=== PATIENT | female | born 1945 | race Caucasian/White ===

== ENCOUNTER 2016-12-15 21:51 | Emergency (ER) | payer MEDICARE, OTHER ==
[~2016-12-15] VITALS: Ht 165.1 cm; Wt 75.0 kg
[2016-12-15] MEDS ORDERED: htn PO (22:27)
[2016-12-15] MEDS ORDERED: [UNRECOGNIZED DRUG - OTHER] PO (22:27)
[2016-12-15] MEDS ORDERED: thyroid PO (22:27)
[2016-12-16] VITALS: BP 112/62
[2016-12-16 00:43] LABS: GLUCOSE,POINT OF CARE 125 MG/DL (70-110)
== END 2016-12-16 00:03 | disposition home or self-care (01) ==
LOC: EMS 21:52
DX: S00.83XA Contusion of other part of head, initial encounter (principal); E11.9 Type 2 diabetes mellitus without complications; F10.129 Alcohol abuse with intoxication, unspecified; I10 Essential (primary) hypertension; E03.9 Hypothyroidism, unspecified; W01.198A Fall on same level from slipping, tripping and stumbling with subsequent striking against other object, initial encounter; Y93.89 Activity, other specified; Y92.89 Other specified places as the place of occurrence of the external cause; Y99.8 Other external cause status
CPT/HCPCS: 70450; 82962; 99284

== ENCOUNTER 2019-01-01 14:25 | Inpatient (IN) | payer MEDICARE, OTHER ==
[~2019-01-01] VITALS: Ht 157.5 cm; Wt 76.7 kg
[~2019-01-01 14:25] MED LIST: [UNRECOGNIZED DRUG - OTHER] PO; htn PO; thyroid PO
[2019-01-01 16:16] VITALS: BP 139/58
[2019-01-01] MEDS ORDERED: TRIAMCINOLONE 0.1% 15 GM CREAM TP PRN (16:30)
[2019-01-01] MEDS ORDERED: MELATONIN 3 MG TABLET PO PRN (16:30)
[2019-01-01] MEDS ORDERED: DICYCLOMINE HCL 10 MG CAPSULE PO SCH (16:30)
[2019-01-01 16:50] VITALS: BP 139/58
[2019-01-01] MEDS: ACETAMINOPHEN 325 MG TABLET PO PRN (16:54)
[2019-01-01] MEDS: MetFORMIN HCL 850 MG TABLET PO SCH (17:42)
[2019-01-01] MEDS ORDERED: DEXTROSE 50%-WATER 25 GM/50 ML SYRINGE IVP PRN (17:45)
[2019-01-01 18:11] LABS: GLUCOMETER DEV NAME(LOC) 2WR.2; GLUCOSE,POINT OF CARE 104 MG/DL (70-110)
[2019-01-01] MEDS: OMEPRAZOLE 20 MG CAPSULE PO SCH (20:18)
[2019-01-01] MEDS: DICYCLOMINE HCL 10 MG CAPSULE PO SCH (20:18)
[2019-01-01] MEDS: DOCUSATE SODIUM 100 MG CAPSULE PO SCH (20:19)
[2019-01-01] MEDS: SENNA 187 MG TABLET PO SCH (20:19)
[2019-01-01] MEDS ORDERED: SOLIFENACIN SUCCINATE 5 MG TABLET PO SCH (21:00)
[2019-01-01 21:06] VITALS: BP 138/62
[2019-01-01 22:10] LABS: GLUCOMETER DEV NAME(LOC) 2WR.2; GLUCOSE,POINT OF CARE 122 MG/DL (70-110)
[2019-01-02] VITALS: BP 126/60
[2019-01-02] MEDS ORDERED: PRED10 PO (04:13)
[2019-01-02] MEDS ORDERED: XALA2.5OS OU (04:13)
[2019-01-02 06:05] LABS: GLUCOMETER DEV NAME(LOC) 2WR.1B; GLUCOSE,POINT OF CARE 96 MG/DL (70-110)
[2019-01-02 06:52] LABS: BASOPHILS % (AUTO) 2.1 % (0.0-2.0); EOSINOPHILS % (AUTO) 1.9 % (1.0-6.0); HEMATOCRIT 37.1 % (36-46); HEMOGLOBIN 12.4 g/dL (12.0-16.0); LYMPHOCYTES # (AUTO) 3.2 K/uL (1.0-4.8); LYMPHOCYTES % (AUTO) 44.4 % (22.0-44.0); MEAN CORPUSCULAR HEMOGLOBIN 27.6 pg (26.0-34.0); MEAN CORPUSCULAR HGB CONC 33.3 G/dL (31.0-37.0); MEAN CORPUSCULAR VOLUME 83 fL (80-100); MONOCYTES # (AUTO) 0.6 K/uL (0.1-1.0); MONOCYTES % (AUTO) 8.4 % (2.0-9.0); NEUTROPHILS # (AUTO) 3.1 K/uL (1.8-7.7); NEUTROPHILS % (AUTO) 43.2 % (40.0-70.0); PLATELET COUNT (AUTO) 382 K/uL (150-450); RED BLOOD CELL COUNT(AUTO) 4.48 MIL/uL (4.00-5.20); RED CELL DISTRIBUTION WIDTH 16.2 % (11.5-14.5)
[2019-01-02] MEDS ORDERED: LEVOTHYROXINE SODIUM 88 MCG TABLET PO SCH (07:00)
[2019-01-02 07:07] LABS: ALBUMIN 3.4 g/dL (3.4-5.0); BILIRUBIN,TOTAL 0.4 mg/dL (0.1-1.0); CALCIUM, TOTAL 9.8 mg/dL (8.8-10.5); CREATININE 1.34 mg/dL (0.60-1.30); POTASSIUM 3.8 mmol/L (3.5-5.1); TOTAL PROTEIN, SERUM 7.5 g/dL (6.4-8.2)
[2019-01-02] MEDS: MetFORMIN HCL 850 MG TABLET PO SCH ×2 (07:57→17:01)
[2019-01-02 08:00] VITALS: BP 133/67
[2019-01-02] MEDS: DOCUSATE SODIUM 100 MG CAPSULE PO SCH ×3 (08:08→20:56)
[2019-01-02] MEDS: OMEPRAZOLE 20 MG CAPSULE PO SCH ×2 (08:09→20:48)
[2019-01-02] MEDS: HydrOXYzine HCL 10 MG TABLET PO SCH (08:09)
[2019-01-02] MEDS: DICYCLOMINE HCL 10 MG CAPSULE PO SCH ×4 (08:09→20:49)
[2019-01-02] MEDS: LOSARTAN POTASSIUM 25 MG TABLET PO SCH (08:09)
[2019-01-02] MEDS: PARoxetine HCL 20 MG TABLET PO SCH (08:09)
[2019-01-02] MEDS: FUROSEMIDE 20 MG TABLET PO SCH (08:09)
[2019-01-02] MEDS: LinaGLIPtin 5 MG TABLET PO SCH (08:10)
[2019-01-02] MEDS: ENOXAPARIN SODIUM 40 MG/0.4 ML PF SYRINGE SQ SCH (08:10)
[2019-01-02] MEDS: ACETAMINOPHEN 325 MG TABLET PO PRN (12:36)
[2019-01-02 12:50] LABS: GLUCOMETER DEV NAME(LOC) 2WR.2; GLUCOSE,POINT OF CARE 176 MG/DL (70-110)
[2019-01-02] MEDS ORDERED: MAG HYDROX/AL HYDROX/SIMETH 30 ML SUSP UDCUP PO PRN (14:00)
[2019-01-02] MEDS ORDERED: TraMADol HCL 50 MG TABLET PO PRN (14:00)
[2019-01-02] MEDS ORDERED: HYDROCODONE/ACETAMINOPHEN 5-325 MG TABLET PO PRN (14:00)
[2019-01-02 15:30] VITALS: BP 126/88
[2019-01-02 17:42] LABS: GLUCOMETER DEV NAME(LOC) 2WR.2; GLUCOSE,POINT OF CARE 138 MG/DL (70-110)
[2019-01-02] MEDS: SENNA 187 MG TABLET PO SCH (20:56)
[2019-01-02 21:56] LABS: GLUCOMETER DEV NAME(LOC) 2WR.2; GLUCOSE,POINT OF CARE 134 MG/DL (70-110)
[2019-01-03 03:00] VITALS: BP 141/65
[2019-01-03] MEDS: LEVOTHYROXINE SODIUM 100 MCG TABLET PO SCH (06:00)
[2019-01-03 06:02] LABS: GLUCOMETER DEV NAME(LOC) 2WR.1B; GLUCOSE,POINT OF CARE 142 MG/DL (70-110)
[2019-01-03 08:00] VITALS: BP 108/61
[2019-01-03] MEDS: PARoxetine HCL 20 MG TABLET PO SCH (08:16)
[2019-01-03] MEDS: DICYCLOMINE HCL 10 MG CAPSULE PO SCH ×4 (08:16→21:36)
[2019-01-03] MEDS: HydrOXYzine HCL 10 MG TABLET PO SCH (08:16)
[2019-01-03] MEDS: FUROSEMIDE 20 MG TABLET PO SCH (08:16)
[2019-01-03] MEDS: MetFORMIN HCL 850 MG TABLET PO SCH ×2 (08:16→17:17)
[2019-01-03] MEDS: OMEPRAZOLE 20 MG CAPSULE PO SCH ×2 (08:16→21:35)
[2019-01-03] MEDS: DOCUSATE SODIUM 100 MG CAPSULE PO SCH ×3 (08:16→21:00)
[2019-01-03] MEDS: LinaGLIPtin 5 MG TABLET PO SCH (08:16)
[2019-01-03] MEDS: LOSARTAN POTASSIUM 25 MG TABLET PO SCH (08:17)
[2019-01-03] MEDS: ENOXAPARIN SODIUM 40 MG/0.4 ML PF SYRINGE SQ SCH (08:17)
[2019-01-03] MEDS: INSULIN LISPRO 100 UNITS/ML SQ PRN ×2 (12:18→21:37)
[2019-01-03 15:35] VITALS: BP 150/69
[2019-01-03 16:55] LABS: GLUCOMETER DEV NAME(LOC) 2WR.1B; GLUCOSE,POINT OF CARE 166 MG/DL (70-110)
[2019-01-03 18:31] LABS: GLUCOMETER DEV NAME(LOC) 2WR.2; GLUCOSE,POINT OF CARE 131 MG/DL (70-110)
[2019-01-03 20:35] LABS: GLUCOMETER DEV NAME(LOC) 2WR.1B; GLUCOSE,POINT OF CARE 170 MG/DL (70-110)
[2019-01-03] MEDS: SENNA 187 MG TABLET PO SCH (21:00)
[2019-01-03 21:59] VITALS: BP 98/51
[2019-01-04] VITALS: BP 112/73
[2019-01-04] MEDS: LEVOTHYROXINE SODIUM 100 MCG TABLET PO SCH (05:25)
[2019-01-04 05:56] LABS: GLUCOMETER DEV NAME(LOC) 2WR.1B; GLUCOSE,POINT OF CARE 126 MG/DL (70-110)
[2019-01-04] MEDS: OMEPRAZOLE 20 MG CAPSULE PO SCH ×2 (08:21→21:07)
[2019-01-04] MEDS: ENOXAPARIN SODIUM 40 MG/0.4 ML PF SYRINGE SQ SCH (08:21)
[2019-01-04] MEDS: LinaGLIPtin 5 MG TABLET PO SCH (08:21)
[2019-01-04] MEDS: HydrOXYzine HCL 10 MG TABLET PO SCH (08:22)
[2019-01-04] MEDS: FUROSEMIDE 20 MG TABLET PO SCH (08:22)
[2019-01-04] MEDS: DICYCLOMINE HCL 10 MG CAPSULE PO SCH ×4 (08:22→21:05)
[2019-01-04] MEDS: MetFORMIN HCL 850 MG TABLET PO SCH ×2 (08:22→17:04)
[2019-01-04] MEDS: PARoxetine HCL 20 MG TABLET PO SCH (08:23)
[2019-01-04] MEDS: LOSARTAN POTASSIUM 25 MG TABLET PO SCH (08:23)
[2019-01-04] MEDS: DOCUSATE SODIUM 100 MG CAPSULE PO SCH ×2 (08:23→21:00)
[2019-01-04 08:53] VITALS: BP 150/69
[2019-01-04] MEDS: MULTIVITAMINS, THERAPEUTIC 15 ML UDCUP PO SCH ×2 (11:45→12:42)
[2019-01-04] MEDS: INSULIN LISPRO 100 UNITS/ML SQ PRN (12:44)
[2019-01-04 16:01] VITALS: BP 123/72
[2019-01-04 18:16] LABS: GLUCOMETER DEV NAME(LOC) 2WR.2; GLUCOSE,POINT OF CARE 117 MG/DL (70-110)
[2019-01-04 18:16] LABS: GLUCOMETER DEV NAME(LOC) 2WR.1B; GLUCOSE,POINT OF CARE 170 MG/DL (70-110)
[2019-01-04] MEDS: SENNA 187 MG TABLET PO SCH (21:00)
[2019-01-04] MEDS ORDERED: ONDANSETRON HCL 4 MG TABLET PO PRN (21:45)
[2019-01-04 22:26] LABS: GLUCOMETER DEV NAME(LOC) 2WR.2; GLUCOSE,POINT OF CARE 145 MG/DL (70-110)
[2019-01-05] VITALS: BP 143/66
[2019-01-05] MEDS: LEVOTHYROXINE SODIUM 100 MCG TABLET PO SCH (05:22)
[2019-01-05 05:56] LABS: GLUCOMETER DEV NAME(LOC) 2WR.2; GLUCOSE,POINT OF CARE 128 MG/DL (70-110)
[2019-01-05 06:13] LABS: BASOPHILS % (AUTO) 1.4 % (0.0-2.0); EOSINOPHILS % (AUTO) 1.9 % (1.0-6.0); HEMATOCRIT 38.4 % (36-46); HEMOGLOBIN 12.7 g/dL (12.0-16.0); LYMPHOCYTES # (AUTO) 2.4 K/uL (1.0-4.8); LYMPHOCYTES % (AUTO) 30.4 % (22.0-44.0); MEAN CORPUSCULAR HEMOGLOBIN 27.5 pg (26.0-34.0); MEAN CORPUSCULAR HGB CONC 33.1 G/dL (31.0-37.0); MEAN CORPUSCULAR VOLUME 83 fL (80-100); MONOCYTES # (AUTO) 0.7 K/uL (0.1-1.0); MONOCYTES % (AUTO) 8.7 % (2.0-9.0); NEUTROPHILS # (AUTO) 4.6 K/uL (1.8-7.7); NEUTROPHILS % (AUTO) 57.6 % (40.0-70.0); PLATELET COUNT (AUTO) 386 K/uL (150-450); RED BLOOD CELL COUNT(AUTO) 4.62 MIL/uL (4.00-5.20); RED CELL DISTRIBUTION WIDTH 16.7 % (11.5-14.5)
[2019-01-05 06:30] VITALS: BP 145/69
[2019-01-05 06:31] LABS: CALCIUM, TOTAL 10.3 mg/dL (8.8-10.5); CREATININE 1.5 mg/dL (0.60-1.30); POTASSIUM 3.7 mmol/L (3.5-5.1)
[2019-01-05] MEDS: MetFORMIN HCL 850 MG TABLET PO SCH ×2 (07:30→17:06)
[2019-01-05] MEDS ORDERED: FentaNYL CITRATE-PF 100 MCG/2 ML VIAL ONE (07:31)
[2019-01-05] MEDS ORDERED: MIDAZOLAM HCL 5 MG/ML VIAL ONE (07:32)
[2019-01-05] MEDS: DOCUSATE SODIUM 100 MG CAPSULE PO SCH ×2 (09:00→21:00)
[2019-01-05] MEDS: MULTIVITAMINS, THERAPEUTIC 15 ML UDCUP PO SCH (09:00)
[2019-01-05] MEDS ORDERED: SODIUM CHLORIDE 0.9% 1,000 ML IV ONE (09:01)
[2019-01-05] MEDS: LinaGLIPtin 5 MG TABLET PO SCH (09:24)
[2019-01-05] MEDS: OMEPRAZOLE 20 MG CAPSULE PO SCH ×2 (09:24→21:00)
[2019-01-05] MEDS: DICYCLOMINE HCL 10 MG CAPSULE PO SCH ×4 (09:25→21:00)
[2019-01-05] MEDS: HydrOXYzine HCL 10 MG TABLET PO SCH (09:25)
[2019-01-05] MEDS: PARoxetine HCL 20 MG TABLET PO SCH (09:25)
[2019-01-05] MEDS: LOSARTAN POTASSIUM 25 MG TABLET PO SCH (09:25)
[2019-01-05] MEDS: FUROSEMIDE 20 MG TABLET PO SCH (09:25)
[2019-01-05 10:00] VITALS: BP 131/58
[2019-01-05] MEDS ORDERED: PROPOFOL 1% 20 ML VIAL IVP ONE (12:00)
[2019-01-05] MEDS ORDERED: LIDOCAINE/PF 2% 5 ML VIAL INJ ONE (12:00)
[2019-01-05] MEDS: MULTIVITAMINS WITH MINERALS, THERAPEUTIC TABLET PO SCH (12:56)
[2019-01-05] MEDS: INSULIN LISPRO 100 UNITS/ML SQ PRN (12:58)
[2019-01-05 16:08] VITALS: BP 126/58
[2019-01-05 16:46] LABS: GLUCOMETER DEV NAME(LOC) 2WR.1B; GLUCOSE,POINT OF CARE 165 MG/DL (70-110)
[2019-01-05] MEDS: 0.9% SODIUM CHLORIDE 10 ML SYRINGE IVP SCH (17:06)
[2019-01-05] MEDS: ACETAMINOPHEN 325 MG TABLET PO PRN (17:06)
[2019-01-05] MEDS: SENNA 187 MG TABLET PO SCH (21:00)
[2019-01-05 21:10] LABS: GLUCOMETER DEV NAME(LOC) 2WR.1B; GLUCOSE,POINT OF CARE 107 MG/DL (70-110)
[2019-01-05 22:46] LABS: GLUCOMETER DEV NAME(LOC) 2WR.2; GLUCOSE,POINT OF CARE 100 MG/DL (70-110)
[2019-01-06] VITALS: BP 147/68
[2019-01-06] MEDS: 0.9% SODIUM CHLORIDE 10 ML SYRINGE IVP SCH ×3 (00:29→17:51)
[2019-01-06] MEDS: LEVOTHYROXINE SODIUM 100 MCG TABLET PO SCH (05:46)
[2019-01-06 06:06] LABS: GLUCOMETER DEV NAME(LOC) 2WR.1B; GLUCOSE,POINT OF CARE 110 MG/DL (70-110)
[2019-01-06 07:30] VITALS: BP 152/70
[2019-01-06] MEDS: HydrOXYzine HCL 10 MG TABLET PO SCH (10:20)
[2019-01-06] MEDS: MetFORMIN HCL 850 MG TABLET PO SCH ×2 (10:20→17:51)
[2019-01-06] MEDS: LinaGLIPtin 5 MG TABLET PO SCH (10:20)
[2019-01-06] MEDS: PARoxetine HCL 20 MG TABLET PO SCH (10:20)
[2019-01-06] MEDS: LOSARTAN POTASSIUM 25 MG TABLET PO SCH (10:20)
[2019-01-06] MEDS: MULTIVITAMINS WITH MINERALS, THERAPEUTIC TABLET PO SCH (10:20)
[2019-01-06] MEDS: FUROSEMIDE 20 MG TABLET PO SCH (10:20)
[2019-01-06] MEDS: DOCUSATE SODIUM 100 MG CAPSULE PO SCH ×2 (10:20→20:59)
[2019-01-06] MEDS: OMEPRAZOLE 20 MG CAPSULE PO SCH ×2 (10:20→20:59)
[2019-01-06] MEDS: DICYCLOMINE HCL 10 MG CAPSULE PO SCH ×4 (10:22→20:58)
[2019-01-06 12:36] LABS: GLUCOMETER DEV NAME(LOC) 2WR.2; GLUCOSE,POINT OF CARE 193 MG/DL (70-110)
[2019-01-06] MEDS: BETHANECHOL CHLORIDE 25 MG TABLET PO SCH ×2 (13:01→20:58)
[2019-01-06] MEDS: INSULIN LISPRO 100 UNITS/ML SQ PRN (13:06)
[2019-01-06 17:31] LABS: GLUCOMETER DEV NAME(LOC) 2WR.2; GLUCOSE,POINT OF CARE 121 MG/DL (70-110)
[2019-01-06 20:58] LABS: APPEARANCE,URINE CLEAR (CLEAR); BILIRUBIN,URINE NEGATIVE (NEGATIVE); GLUCOSE, URINE (UA) NEGATIVE (NEGATIVE); KETONES,URINE TRACE mg/dL (NEGATIVE); LEUKOCYTE ESTERASE ,URINE TRACE (NEGATIVE); OCCULT BLOOD,URINE NEGATIVE (NEGATIVE); PH,URINE 5.5 (5.0-8.0); PROTEIN,URINE NEGATIVE (NEGATIVE); UROBILINOGEN,URINE 0.2 mg/dL (<=1.0)
[2019-01-06] MEDS: SENNA 187 MG TABLET PO SCH (20:59)
[2019-01-06] MEDS ORDERED: TAMSULOSIN HCL 0.4 MG CAPSULE PO SCH (21:00)
[2019-01-06 21:05] LABS: BACTERIA,URINE Many /HPF (None Seen); NITRATE,URINE POSITIVE (NEGATIVE); RBC,URINE 0-2 /HPF (0-2); SQUAMOUS EPITHELIAL CELL,UR Few /LPF (None Seen)
[2019-01-06 21:39] VITALS: BP 145/60
[2019-01-06 22:12] LABS: GLUCOMETER DEV NAME(LOC) 2WR.2; GLUCOSE,POINT OF CARE 99 MG/DL (70-110)
[2019-01-07] VITALS: BP 150/60
[2019-01-07] MEDS: 0.9% SODIUM CHLORIDE 10 ML SYRINGE IVP SCH ×4 (00:03→23:26)
[2019-01-07] MEDS: LEVOTHYROXINE SODIUM 100 MCG TABLET PO SCH (05:51)
[2019-01-07 06:18] LABS: GLUCOMETER DEV NAME(LOC) 2WR.2; GLUCOSE,POINT OF CARE 111 MG/DL (70-110)
[2019-01-07 07:00] LABS: ALBUMIN 3.4 g/dL (3.4-5.0); BILIRUBIN,TOTAL 0.5 mg/dL (0.1-1.0); CALCIUM, TOTAL 9.2 mg/dL (8.8-10.5); CREATININE 1.31 mg/dL (0.60-1.30); POTASSIUM 3.6 mmol/L (3.5-5.1); TOTAL PROTEIN, SERUM 7.2 g/dL (6.4-8.2)
[2019-01-07] MEDS: MetFORMIN HCL 850 MG TABLET PO SCH ×2 (07:29→17:50)
[2019-01-07] MEDS: OMEPRAZOLE 20 MG CAPSULE PO SCH ×2 (07:29→20:35)
[2019-01-07] MEDS: FUROSEMIDE 20 MG TABLET PO SCH (07:30)
[2019-01-07] MEDS: LinaGLIPtin 5 MG TABLET PO SCH (07:30)
[2019-01-07] MEDS: PARoxetine HCL 20 MG TABLET PO SCH (07:30)
[2019-01-07] MEDS: MULTIVITAMINS WITH MINERALS, THERAPEUTIC TABLET PO SCH (07:30)
[2019-01-07] MEDS: LOSARTAN POTASSIUM 25 MG TABLET PO SCH (07:30)
[2019-01-07] MEDS: BETHANECHOL CHLORIDE 25 MG TABLET PO SCH ×2 (07:31→20:36)
[2019-01-07] MEDS: DICYCLOMINE HCL 10 MG CAPSULE PO SCH ×4 (07:31→20:56)
[2019-01-07] MEDS: DOCUSATE SODIUM 100 MG CAPSULE PO SCH ×2 (07:31→20:36)
[2019-01-07 08:00] VITALS: BP 115/50
[2019-01-07 11:51] LABS: GLUCOMETER DEV NAME(LOC) 2WR.2; GLUCOSE,POINT OF CARE 174 MG/DL (70-110)
[2019-01-07] MEDS: INSULIN LISPRO 100 UNITS/ML SQ PRN (12:38)
[2019-01-07 16:02] VITALS: BP 130/62
[2019-01-07 17:31] LABS: GLUCOMETER DEV NAME(LOC) 2WR.2; GLUCOSE,POINT OF CARE 120 MG/DL (70-110)
[2019-01-07] MEDS: TAMSULOSIN HCL 0.4 MG CAPSULE PO SCH (20:36)
[2019-01-07] MEDS: SENNA 187 MG TABLET PO SCH (20:36)
[2019-01-07] MEDS: MIRTAZAPINE 15 MG TABLET PO SCH (20:36)
[2019-01-07 22:01] LABS: GLUCOMETER DEV NAME(LOC) 2WR.2; GLUCOSE,POINT OF CARE 109 MG/DL (70-110)
[2019-01-08] VITALS: BP 131/59
[2019-01-08] MEDS: LEVOTHYROXINE SODIUM 100 MCG TABLET PO SCH (05:54)
[2019-01-08 05:56] LABS: GLUCOMETER DEV NAME(LOC) 2WR.2; GLUCOSE,POINT OF CARE 97 MG/DL (70-110)
[2019-01-08 07:30] VITALS: BP 131/52
[2019-01-08] MEDS: MetFORMIN HCL 850 MG TABLET PO SCH ×2 (08:02→17:11)
[2019-01-08] MEDS: LinaGLIPtin 5 MG TABLET PO SCH (08:02)
[2019-01-08] MEDS: PARoxetine HCL 20 MG TABLET PO SCH (08:02)
[2019-01-08] MEDS: MULTIVITAMINS WITH MINERALS, THERAPEUTIC TABLET PO SCH (08:02)
[2019-01-08] MEDS: OMEPRAZOLE 20 MG CAPSULE PO SCH ×2 (08:02→20:50)
[2019-01-08] MEDS: TAMSULOSIN HCL 0.4 MG CAPSULE PO SCH ×2 (08:02→20:51)
[2019-01-08] MEDS: FUROSEMIDE 20 MG TABLET PO SCH (08:03)
[2019-01-08] MEDS: DICYCLOMINE HCL 10 MG CAPSULE PO SCH ×6 (08:03→20:51)
[2019-01-08] MEDS: BETHANECHOL CHLORIDE 25 MG TABLET PO SCH ×2 (08:03→20:50)
[2019-01-08] MEDS: DOCUSATE SODIUM 100 MG CAPSULE PO SCH ×3 (08:03→20:51)
[2019-01-08] MEDS: LOSARTAN POTASSIUM 50 MG TABLET PO SCH (08:03)
[2019-01-08 08:48] LABS: CALCIUM, TOTAL 9.1 mg/dL (8.8-10.5); CREATININE 1.22 mg/dL (0.60-1.30); POTASSIUM 3.7 mmol/L (3.5-5.1)
[2019-01-08] MEDS ORDERED: LEVO50TA11 PO (10:41)
[2019-01-08] MEDS ORDERED: BETH25 PO (10:41)
[2019-01-08] MEDS ORDERED: OMEP20 PO (10:41)
[2019-01-08] MEDS ORDERED: METF-445 PO (10:41)
[2019-01-08] MEDS ORDERED: DICY10 PO (10:41)
[2019-01-08] MEDS ORDERED: TAMS-13 PO (10:41)
[2019-01-08] MEDS ORDERED: PARO20TA24 PO (10:41)
[2019-01-08] MEDS ORDERED: FURO20 PO (10:41)
[2019-01-08] MEDS ORDERED: LINA5TAB PO (10:41)
[2019-01-08] MEDS: 0.9% SODIUM CHLORIDE 10 ML SYRINGE IVP SCH ×3 (10:41→23:31)
[2019-01-08] MEDS ORDERED: DOCU-275 PO (10:41)
[2019-01-08] MEDS ORDERED: LOSA50TA64 PO (10:41)
[2019-01-08] MEDS ORDERED: MIRT15 PO (10:41)
[2019-01-08] MEDS ORDERED: MULT-248 PO (10:41)
[2019-01-08 12:26] LABS: GLUCOMETER DEV NAME(LOC) 2WR.2; GLUCOSE,POINT OF CARE 150 MG/DL (70-110)
[2019-01-08] MEDS ORDERED: LEVO100 PO (12:29)
[2019-01-08] MEDS: ENOXAPARIN SODIUM 40 MG/0.4 ML PF SYRINGE SQ SCH (12:35)
[2019-01-08] MEDS: INSULIN LISPRO 100 UNITS/ML SQ PRN (12:36)
[2019-01-08 16:18] VITALS: BP 104/46
[2019-01-08] MEDS: MIRTAZAPINE 15 MG TABLET PO SCH (20:50)
[2019-01-08] MEDS: SENNA 187 MG TABLET PO SCH (20:51)
[2019-01-08 21:46] LABS: GLUCOMETER DEV NAME(LOC) 2WR.1B; GLUCOSE,POINT OF CARE 86 MG/DL (70-110)
[2019-01-08 21:46] LABS: GLUCOMETER DEV NAME(LOC) 2WR.1B; GLUCOSE,POINT OF CARE 115 MG/DL (70-110)
[2019-01-09 00:44] VITALS: BP 121/51
[2019-01-09] MEDS: LEVOTHYROXINE SODIUM 100 MCG TABLET PO SCH (05:48)
[2019-01-09 05:50] LABS: GLUCOMETER DEV NAME(LOC) 2WR.2; GLUCOSE,POINT OF CARE 92 MG/DL (70-110)
[2019-01-09 07:25] VITALS: BP 113/53
[2019-01-09] MEDS: OMEPRAZOLE 20 MG CAPSULE PO SCH ×3 (08:35→20:42)
[2019-01-09] MEDS: PARoxetine HCL 20 MG TABLET PO SCH (08:36)
[2019-01-09] MEDS: MetFORMIN HCL 850 MG TABLET PO SCH ×2 (08:36→18:43)
[2019-01-09] MEDS: FUROSEMIDE 20 MG TABLET PO SCH (08:36)
[2019-01-09] MEDS: TAMSULOSIN HCL 0.4 MG CAPSULE PO SCH ×3 (08:36→20:42)
[2019-01-09] MEDS: LOSARTAN POTASSIUM 50 MG TABLET PO SCH ×2 (09:00→13:10)
[2019-01-09] MEDS: LinaGLIPtin 5 MG TABLET PO SCH ×2 (09:00→13:10)
[2019-01-09] MEDS: MULTIVITAMINS WITH MINERALS, THERAPEUTIC TABLET PO SCH ×2 (09:00→13:10)
[2019-01-09] MEDS: DICYCLOMINE HCL 10 MG CAPSULE PO SCH ×4 (09:00→20:30)
[2019-01-09] MEDS: DOCUSATE SODIUM 100 MG CAPSULE PO SCH ×2 (09:00→20:30)
[2019-01-09 10:00] VITALS: BP 123/67
[2019-01-09] MEDS: 0.9% SODIUM CHLORIDE 10 ML SYRINGE IVP SCH ×3 (10:14→23:21)
[2019-01-09] MEDS: BETHANECHOL CHLORIDE 25 MG TABLET PO SCH ×3 (13:10→20:42)
[2019-01-09] MEDS: ENOXAPARIN SODIUM 40 MG/0.4 ML PF SYRINGE SQ SCH (13:10)
[2019-01-09 16:46] LABS: GLUCOMETER DEV NAME(LOC) 2WR.1B; GLUCOSE,POINT OF CARE 127 MG/DL (70-110)
[2019-01-09 17:02] VITALS: BP 125/57
[2019-01-09 17:47] LABS: GLUCOMETER DEV NAME(LOC) 2WR.1B; GLUCOSE,POINT OF CARE 101 MG/DL (70-110)
[2019-01-09] MEDS: MIRTAZAPINE 15 MG TABLET PO SCH ×2 (20:29→20:42)
[2019-01-09] MEDS: SENNA 187 MG TABLET PO SCH (20:30)
[2019-01-09 21:21] LABS: GLUCOMETER DEV NAME(LOC) 2WR.1B; GLUCOSE,POINT OF CARE 112 MG/DL (70-110)
[2019-01-10] VITALS: BP 137/57
[2019-01-10 00:53] VITALS: BP 137/57
[2019-01-10] MEDS: LEVOTHYROXINE SODIUM 100 MCG TABLET PO SCH (05:41)
[2019-01-10 06:22] LABS: GLUCOMETER DEV NAME(LOC) 2WR.2; GLUCOSE,POINT OF CARE 88 MG/DL (70-110)
[2019-01-10 08:01] VITALS: BP 144/67
[2019-01-10] MEDS: OMEPRAZOLE 20 MG CAPSULE PO SCH ×2 (09:00→21:01)
[2019-01-10] MEDS: LinaGLIPtin 5 MG TABLET PO SCH (09:00)
[2019-01-10] MEDS: DOCUSATE SODIUM 100 MG CAPSULE PO SCH ×2 (09:00→21:00)
[2019-01-10] MEDS: TAMSULOSIN HCL 0.4 MG CAPSULE PO SCH ×2 (09:00→21:00)
[2019-01-10] MEDS: PARoxetine HCL 20 MG TABLET PO SCH (09:00)
[2019-01-10] MEDS: MULTIVITAMINS WITH MINERALS, THERAPEUTIC TABLET PO SCH (09:00)
[2019-01-10] MEDS: ENOXAPARIN SODIUM 40 MG/0.4 ML PF SYRINGE SQ SCH (09:00)
[2019-01-10] MEDS: BETHANECHOL CHLORIDE 25 MG TABLET PO SCH ×2 (09:00→20:56)
[2019-01-10] MEDS: FUROSEMIDE 20 MG TABLET PO SCH (09:00)
[2019-01-10] MEDS: LOSARTAN POTASSIUM 50 MG TABLET PO SCH (09:00)
[2019-01-10] MEDS: DICYCLOMINE HCL 10 MG CAPSULE PO SCH ×4 (09:00→21:00)
[2019-01-10] MEDS: 0.9% SODIUM CHLORIDE 10 ML SYRINGE IVP SCH ×2 (11:08→16:23)
[2019-01-10] MEDS: MetFORMIN HCL 850 MG TABLET PO SCH ×2 (11:08→17:51)
[2019-01-10] MEDS: INSULIN LISPRO 100 UNITS/ML SQ PRN (13:21)
[2019-01-10 16:00] VITALS: BP 137/64
[2019-01-10 16:24] VITALS: BP 137/64
[2019-01-10] MEDS ORDERED: FLUCONAZOLE 200 MG TABLET PO ONE (16:30)
[2019-01-10 16:46] LABS: GLUCOMETER DEV NAME(LOC) 2WR.1B; GLUCOSE,POINT OF CARE 190 MG/DL (70-110)
[2019-01-10 17:16] LABS: GLUCOMETER DEV NAME(LOC) 2WR.2; GLUCOSE,POINT OF CARE 76 MG/DL (70-110)
[2019-01-10 18:37] LABS: GLUCOMETER DEV NAME(LOC) 2WR.1B; GLUCOSE,POINT OF CARE 103 MG/DL (70-110)
[2019-01-10] MEDS: MIRTAZAPINE 15 MG TABLET PO SCH (20:56)
[2019-01-10] MEDS: SENNA 187 MG TABLET PO SCH (21:00)
[2019-01-10 21:16] LABS: GLUCOMETER DEV NAME(LOC) 2WR.2; GLUCOSE,POINT OF CARE 79 MG/DL (70-110)
[2019-01-11 00:39] VITALS: BP 140/72
[2019-01-11 00:46] VITALS: BP 140/72
[2019-01-11] MEDS: LEVOTHYROXINE SODIUM 100 MCG TABLET PO SCH (05:50)
[2019-01-11 06:11] LABS: GLUCOMETER DEV NAME(LOC) 2WR.2; GLUCOSE,POINT OF CARE 92 MG/DL (70-110)
[2019-01-11] MEDS: MetFORMIN HCL 850 MG TABLET PO SCH ×2 (08:11→17:57)
[2019-01-11] MEDS: 0.9% SODIUM CHLORIDE 10 ML SYRINGE IVP SCH ×3 (08:11→16:49)
[2019-01-11] MEDS: LOSARTAN POTASSIUM 50 MG TABLET PO SCH (08:12)
[2019-01-11] MEDS: FUROSEMIDE 20 MG TABLET PO SCH (08:12)
[2019-01-11] MEDS: LinaGLIPtin 5 MG TABLET PO SCH (08:13)
[2019-01-11] MEDS: BETHANECHOL CHLORIDE 25 MG TABLET PO SCH ×2 (08:13→20:27)
[2019-01-11] MEDS: ENOXAPARIN SODIUM 40 MG/0.4 ML PF SYRINGE SQ SCH (08:14)
[2019-01-11] MEDS: PARoxetine HCL 20 MG TABLET PO SCH (08:15)
[2019-01-11 09:00] VITALS: BP 148/66
[2019-01-11] MEDS: DOCUSATE SODIUM 100 MG CAPSULE PO SCH ×2 (09:00→20:27)
[2019-01-11] MEDS: DICYCLOMINE HCL 10 MG CAPSULE PO SCH (09:00)
[2019-01-11] MEDS: TAMSULOSIN HCL 0.4 MG CAPSULE PO SCH ×2 (09:00→20:21)
[2019-01-11] MEDS: MULTIVITAMINS WITH MINERALS, THERAPEUTIC TABLET PO SCH (09:00)
[2019-01-11] MEDS: OMEPRAZOLE 20 MG CAPSULE PO SCH ×2 (09:00→20:20)
[2019-01-11 13:47] VITALS: BP 148/66
[2019-01-11 15:24] VITALS: BP 113/78
[2019-01-11 16:16] LABS: GLUCOMETER DEV NAME(LOC) 2WR.1B; GLUCOSE,POINT OF CARE 129 MG/DL (70-110)
[2019-01-11] MEDS: MIRTAZAPINE 15 MG TABLET PO SCH (20:21)
[2019-01-11] MEDS: SENNA 187 MG TABLET PO SCH (20:27)
[2019-01-11 20:42] LABS: GLUCOMETER DEV NAME(LOC) 2WR.2; GLUCOSE,POINT OF CARE 121 MG/DL (70-110)
[2019-01-11 21:27] LABS: GLUCOMETER DEV NAME(LOC) 2WR.1B; GLUCOSE,POINT OF CARE 101 MG/DL (70-110)
[2019-01-12] VITALS: BP 129/59
[2019-01-12] MEDS: 0.9% SODIUM CHLORIDE 10 ML SYRINGE IVP SCH ×4 (00:08→23:55)
[2019-01-12 04:09] VITALS: BP 129/59
[2019-01-12] MEDS ORDERED: ENOX40DI9 SQ (04:10)
[2019-01-12] MEDS ORDERED: MULT-1239 PO (04:12)
[2019-01-12] MEDS ORDERED: PARO10TA89 PO (04:13)
[2019-01-12] MEDS ORDERED: INSU100V SQ (04:16)
[2019-01-12] MEDS ORDERED: ACET-2247 PO (04:31)
[2019-01-12] MEDS ORDERED: MAG30ORA11 PO (04:31)
[2019-01-12] MEDS ORDERED: SENN8.6T90 PO (04:31)
[2019-01-12] MEDS ORDERED: TRAM50TA4 PO (04:33)
[2019-01-12] MEDS ORDERED: ONDA-104 PO (04:33)
[2019-01-12] MEDS ORDERED: MELA3TAB66 PO (04:33)
[2019-01-12] MEDS: LEVOTHYROXINE SODIUM 100 MCG TABLET PO SCH (05:58)
[2019-01-12 06:12] LABS: GLUCOMETER DEV NAME(LOC) 2WR.2; GLUCOSE,POINT OF CARE 119 MG/DL (70-110)
[2019-01-12 07:15] VITALS: BP 108/47
[2019-01-12] MEDS: MetFORMIN HCL 850 MG TABLET PO SCH ×2 (08:43→17:10)
[2019-01-12] MEDS: ENOXAPARIN SODIUM 40 MG/0.4 ML PF SYRINGE SQ SCH (08:43)
[2019-01-12] MEDS: FUROSEMIDE 20 MG TABLET PO SCH (08:44)
[2019-01-12] MEDS: PARoxetine HCL 10 MG TABLET PO SCH (08:44)
[2019-01-12] MEDS: LOSARTAN POTASSIUM 50 MG TABLET PO SCH (08:44)
[2019-01-12] MEDS: BETHANECHOL CHLORIDE 25 MG TABLET PO SCH ×3 (08:44→21:00)
[2019-01-12] MEDS: LinaGLIPtin 5 MG TABLET PO SCH (08:44)
[2019-01-12] MEDS: MULTIVITAMINS WITH MINERALS, THERAPEUTIC TABLET PO SCH (08:45)
[2019-01-12] MEDS: TAMSULOSIN HCL 0.4 MG CAPSULE PO SCH ×2 (09:00→21:00)
[2019-01-12] MEDS: DOCUSATE SODIUM 100 MG CAPSULE PO SCH ×2 (09:00→21:00)
[2019-01-12] MEDS: OMEPRAZOLE 20 MG CAPSULE PO SCH ×2 (09:00→21:00)
[2019-01-12 10:36] LABS: CALCIUM, TOTAL 9.5 mg/dL (8.8-10.5); CREATININE 2.44 mg/dL (0.60-1.30)
[2019-01-12] MEDS: INSULIN LISPRO 100 UNITS/ML SQ PRN (12:21)
[2019-01-12] MEDS ORDERED: SODIUM CHLORIDE 0.9% 1,000 ML IV ONE (13:30)
[2019-01-12 17:06] VITALS: BP 137/62
[2019-01-12 17:21] LABS: GLUCOMETER DEV NAME(LOC) 2WR.1B; GLUCOSE,POINT OF CARE 145 MG/DL (70-110)
[2019-01-12 17:51] LABS: GLUCOMETER DEV NAME(LOC) 2WR.2; GLUCOSE,POINT OF CARE 106 MG/DL (70-110)
[2019-01-12] MEDS: SENNA 187 MG TABLET PO SCH (21:00)
[2019-01-12] MEDS: MIRTAZAPINE 15 MG TABLET PO SCH (21:37)
[2019-01-12 21:47] LABS: GLUCOMETER DEV NAME(LOC) 2WR.1B; GLUCOSE,POINT OF CARE 104 MG/DL (70-110)
[2019-01-13 03:27] VITALS: BP 111/57
[2019-01-13] MEDS: LEVOTHYROXINE SODIUM 100 MCG TABLET PO SCH (05:47)
[2019-01-13 06:07] LABS: GLUCOMETER DEV NAME(LOC) 2WR.2; GLUCOSE,POINT OF CARE 87 MG/DL (70-110)
[2019-01-13 07:05] LABS: CREATININE,URINE RANDOM 151.6 mg/dL (30.0-125.0)
[2019-01-13 08:02] VITALS: BP 122/52
[2019-01-13] MEDS: ENOXAPARIN SODIUM 40 MG/0.4 ML PF SYRINGE SQ SCH (08:17)
[2019-01-13] MEDS: 0.9% SODIUM CHLORIDE 10 ML SYRINGE IVP SCH ×2 (08:17→15:35)
[2019-01-13] MEDS: LinaGLIPtin 5 MG TABLET PO SCH (08:17)
[2019-01-13] MEDS: MetFORMIN HCL 850 MG TABLET PO SCH ×2 (08:17→17:16)
[2019-01-13] MEDS: BETHANECHOL CHLORIDE 25 MG TABLET PO SCH (08:18)
[2019-01-13] MEDS: PARoxetine HCL 10 MG TABLET PO SCH (08:18)
[2019-01-13] MEDS: OMEPRAZOLE 20 MG CAPSULE PO SCH (08:20)
[2019-01-13] MEDS: TAMSULOSIN HCL 0.4 MG CAPSULE PO SCH (08:34)
[2019-01-13] MEDS: DOCUSATE SODIUM 100 MG CAPSULE PO SCH (08:34)
[2019-01-13] MEDS: MULTIVITAMINS WITH MINERALS, THERAPEUTIC TABLET PO SCH (09:00)
[2019-01-13 12:06] LABS: CALCIUM, TOTAL 9.4 mg/dL (8.8-10.5); CREATININE 1.72 mg/dL (0.60-1.30); POTASSIUM 4.3 mmol/L (3.5-5.1)
[2019-01-13 12:31] LABS: GLUCOMETER DEV NAME(LOC) 2WR.1B; GLUCOSE,POINT OF CARE 98 MG/DL (70-110)
[2019-01-13 15:24] LABS: THYROID STIMULATING HORMONE 2.11 uIU/mL (0.36-3.74)
[2019-01-13 16:07] VITALS: BP 130/57
[2019-01-13 18:16] LABS: GLUCOMETER DEV NAME(LOC) 2WR.2; GLUCOSE,POINT OF CARE 88 MG/DL (70-110)
== END 2019-01-13 19:00 | DRG 551 ==
LOC: 2WR 15:15
PROVIDERS: ADMIT Physical Medicine & Rehabilitation; ATTEND Physical Medicine & Rehabilitation
PROC: 0DB68ZX Excision of Stomach, Via Natural or Artificial Opening Endoscopic, Diagnostic (ICD-10-PCS; 2019-01-05)
PROC: 0DB58ZX Excision of Esophagus, Via Natural or Artificial Opening Endoscopic, Diagnostic (ICD-10-PCS; principal; 2019-01-05 08:00)
DX: M50.01 Cervical disc disorder with myelopathy, high cervical region (principal); G82.50 Quadriplegia, unspecified; G82.20 Paraplegia, unspecified; F33.2 Major depressive disorder, recurrent severe without psychotic features; N17.9 Acute kidney failure, unspecified; E03.9 Hypothyroidism, unspecified; E11.9 Type 2 diabetes mellitus without complications; I10 Essential (primary) hypertension; K21.9 Gastro-esophageal reflux disease without esophagitis; M48.02 Spinal stenosis, cervical region; R13.10 Dysphagia, unspecified; E11.21 Type 2 diabetes mellitus with diabetic nephropathy; E11.22 Type 2 diabetes mellitus with diabetic chronic kidney disease; E11.319 Type 2 diabetes mellitus with unspecified diabetic retinopathy without macular edema; I12.9 Hypertensive chronic kidney disease with stage 1 through stage 4 chronic kidney disease, or unspecified chronic kidney disease; M81.0 Age-related osteoporosis without current pathological fracture; N18.3 Chronic kidney disease, stage 3 (moderate); R62.7 Adult failure to thrive; Z79.01 Long term (current) use of anticoagulants; Z90.710 Acquired absence of both cervix and uterus; Z79.84 Long term (current) use of oral hypoglycemic drugs; Z79.899 Other long term (current) drug therapy; Z87.440 Personal history of urinary (tract) infections
CPT/HCPCS: 74220; 76770; 82570; 84156; 84300; 84443; 87081; 87086; 88305; 88312; 88313; 92507; 92526; 92610; 93970; 97110; 97112; 97116; 97163; 97167; 97530; 97535; 99366; J1650; J2250; J2704; J3010; J3490; J7030

== ENCOUNTER 2022-06-07 17:22 | Inpatient (IN) | payer MEDICARE, OTHER ==
[~2022-06-07] VITALS: Ht 152.4 cm; Wt 73.5 kg
[~2022-06-07 17:22] MED LIST changes: +DOCU-385 PO; +FURO20 PO; +GABA-1216 PO; +HYDR-3831 PO; +LEVO100 PO; +LOSA-381 PO; +MAG30ORA11 PO; +MELA3TAB89 PO; +METF-445 PO; +OMEP20 PO; +PARO10TA89 PO; +SOLI5 PO; +TRAM-559 PO; -[UNRECOGNIZED DRUG - OTHER] PO; -htn PO; -thyroid PO
[2022-06-07 20:57] VITALS: BP 164/77
[2022-06-07] MEDS ORDERED: SENNOSIDES 8.6 MG TABLET PO SCH (21:00)
[2022-06-07] MEDS: GABAPENTIN 100 MG CAPSULE PO SCH (21:51)
[2022-06-07 21:52] VITALS: BP 158/75
[2022-06-07] MEDS: DOCUSATE SODIUM 100 MG CAPSULE PO SCH (21:52)
[2022-06-07] MEDS: OMEPRAZOLE 20 MG CAPSULE PO SCH (21:52)
[2022-06-07] MEDS: PARoxetine HCL 20 MG TABLET PO SCH (21:52)
[2022-06-07] MEDS: HydrOXYzine HCL 10 MG TABLET PO SCH (21:52)
[2022-06-07] MEDS: ACETAMINOPHEN 325 MG TABLET PO PRN (21:52)
[2022-06-07] MEDS: ETHYL ALCOHOL 62% ANTISEPTIC NASAL SANITIZER 0.6 ML AMPUL NASAL SCH (21:55)
[2022-06-08] MEDS: LEVOTHYROXINE SODIUM 100 MCG TABLET PO SCH (06:14)
[2022-06-08 07:01] LABS: GLUCOMETER DEV NAME(LOC) 2WR.1C; GLUCOSE,POINT OF CARE 134 MG/DL (70-110)
[2022-06-08 08:17] LABS: BASOPHILS % (AUTO) 0.8 % (0.0-2.0); EOSINOPHILS % (AUTO) 2.3 % (1.0-6.0); HEMOGLOBIN 12.1 g/dL (12.0-16.0); LYMPHOCYTES # (AUTO) 1.9 K/uL (1.0-4.8); LYMPHOCYTES % (AUTO) 24.2 % (22.0-44.0); MEAN CORPUSCULAR HEMOGLOBIN 28.8 pg (26.0-34.0); MEAN CORPUSCULAR HGB CONC 33.5 G/dL (31.0-37.0); MEAN CORPUSCULAR VOLUME 86 fL (80-100); MONOCYTES # (AUTO) 0.7 K/uL (0.1-1.0); MONOCYTES % (AUTO) 8.7 % (2.0-9.0); NEUTROPHILS # (AUTO) 5.1 K/uL (1.8-7.7); PLATELET COUNT (AUTO) 306 K/uL (150-450)
[2022-06-08 08:30] VITALS: BP 155/68
[2022-06-08 08:32] LABS: ALBUMIN 3.2 g/dL (3.4-5.0); BILIRUBIN,TOTAL 0.9 mg/dL (0.1-1.0); CALCIUM, TOTAL 9.7 mg/dL (8.8-10.5); POTASSIUM 3.8 mmol/L (3.5-5.1); TOTAL PROTEIN, SERUM 7.3 g/dL (6.4-8.2)
[2022-06-08] MEDS: LOSARTAN POTASSIUM 25 MG TABLET PO SCH (08:39)
[2022-06-08] MEDS: GABAPENTIN 100 MG CAPSULE PO SCH ×3 (08:39→21:23)
[2022-06-08] MEDS: OMEPRAZOLE 20 MG CAPSULE PO SCH ×2 (08:40→21:23)
[2022-06-08] MEDS: FUROSEMIDE 20 MG TABLET PO SCH (08:40)
[2022-06-08] MEDS: MetFORMIN HCL 850 MG TABLET PO SCH ×2 (08:40→16:46)
[2022-06-08] MEDS: ETHYL ALCOHOL 62% ANTISEPTIC NASAL SANITIZER 0.6 ML AMPUL NASAL SCH ×2 (08:41→21:23)
[2022-06-08] MEDS: DOCUSATE SODIUM 100 MG CAPSULE PO SCH (08:41)
[2022-06-08] MEDS ORDERED: SOLIFENACIN SUCCINATE 5 MG TABLET PO SCH (09:00)
[2022-06-08] MEDS: ACETAMINOPHEN 325 MG TABLET PO PRN (10:14)
[2022-06-08 17:31] LABS: GLUCOMETER DEV NAME(LOC) 2WR.1C; GLUCOSE,POINT OF CARE 126 MG/DL (70-110)
[2022-06-08] MEDS: PARoxetine HCL 20 MG TABLET PO SCH (21:23)
[2022-06-08] MEDS: SENNOSIDES 8.6 MG TABLET PO SCH (21:23)
[2022-06-08] MEDS: HydrOXYzine HCL 10 MG TABLET PO SCH (21:23)
[2022-06-08] MEDS: DOCUSATE SODIUM 250 MG CAPSULE PO SCH (21:23)
[2022-06-09] MEDS: ACETAMINOPHEN 325 MG TABLET PO PRN ×2 (02:00→17:41)
[2022-06-09] MEDS ORDERED: DOCUSATE SODIUM 283 MG/5 ML MINI-ENEMA PR PRN (05:30)
[2022-06-09] MEDS: LEVOTHYROXINE SODIUM 100 MCG TABLET PO SCH (06:18)
[2022-06-09 06:50] LABS: GLUCOMETER DEV NAME(LOC) 2WR.1C; GLUCOSE,POINT OF CARE 136 MG/DL (70-110)
[2022-06-09 08:00] VITALS: BP 140/69
[2022-06-09] MEDS: DOCUSATE SODIUM 250 MG CAPSULE PO SCH ×2 (08:03→20:53)
[2022-06-09] MEDS: OMEPRAZOLE 20 MG CAPSULE PO SCH ×2 (08:04→20:53)
[2022-06-09] MEDS: GABAPENTIN 100 MG CAPSULE PO SCH ×3 (08:04→20:53)
[2022-06-09] MEDS: ETHYL ALCOHOL 62% ANTISEPTIC NASAL SANITIZER 0.6 ML AMPUL NASAL SCH ×2 (08:04→20:53)
[2022-06-09] MEDS: MetFORMIN HCL 850 MG TABLET PO SCH ×2 (08:04→16:52)
[2022-06-09] MEDS: LOSARTAN POTASSIUM 25 MG TABLET PO SCH (08:04)
[2022-06-09] MEDS: FUROSEMIDE 20 MG TABLET PO SCH (08:04)
[2022-06-09 17:26] LABS: GLUCOMETER DEV NAME(LOC) 2WR.2B; GLUCOSE,POINT OF CARE 126 MG/DL (70-110)
[2022-06-09 19:30] VITALS: BP 117/68
[2022-06-09] MEDS: PARoxetine HCL 20 MG TABLET PO SCH (20:53)
[2022-06-09] MEDS: HydrOXYzine HCL 10 MG TABLET PO SCH (20:53)
[2022-06-09] MEDS: SENNOSIDES 8.6 MG TABLET PO SCH (20:53)
[2022-06-10] MEDS: LEVOTHYROXINE SODIUM 100 MCG TABLET PO SCH (06:22)
[2022-06-10 06:46] LABS: GLUCOMETER DEV NAME(LOC) 2WR.2B; GLUCOSE,POINT OF CARE 119 MG/DL (70-110)
[2022-06-10 08:00] VITALS: BP 132/56
[2022-06-10] MEDS: DOCUSATE SODIUM 250 MG CAPSULE PO SCH ×2 (08:19→20:43)
[2022-06-10] MEDS: ETHYL ALCOHOL 62% ANTISEPTIC NASAL SANITIZER 0.6 ML AMPUL NASAL SCH ×2 (08:19→20:43)
[2022-06-10] MEDS: MetFORMIN HCL 850 MG TABLET PO SCH ×2 (08:19→16:39)
[2022-06-10] MEDS: FUROSEMIDE 20 MG TABLET PO SCH (08:20)
[2022-06-10] MEDS: OMEPRAZOLE 20 MG CAPSULE PO SCH ×2 (08:20→20:44)
[2022-06-10] MEDS: LOSARTAN POTASSIUM 25 MG TABLET PO SCH (08:20)
[2022-06-10] MEDS: GABAPENTIN 100 MG CAPSULE PO SCH (08:20)
[2022-06-10] MEDS: ACETAMINOPHEN 325 MG TABLET PO PRN ×2 (08:23→15:03)
[2022-06-10 15:17] LABS: APPEARANCE,URINE HAZY (CLEAR); BILIRUBIN,URINE NEGATIVE (NEGATIVE); GLUCOSE, URINE (UA) NEGATIVE (NEGATIVE); KETONES,URINE NEGATIVE (NEGATIVE); LEUKOCYTE ESTERASE ,URINE LARGE (NEGATIVE); NITRATE,URINE NEGATIVE (NEGATIVE); OCCULT BLOOD,URINE TRACE (NEGATIVE); PH,URINE 6.5 (5.0-8.0); PROTEIN,URINE TRACE mg/dL (NEGATIVE); SPECIFIC GRAVITIY, URINE 1.012 (1.003-1.030); UROBILINOGEN,URINE <=1.0 mg/dL (<=1.0)
[2022-06-10 15:42] LABS: BACTERIA,URINE Many /HPF (None Seen); RBC,URINE 0-2 /HPF (0-2); SQUAMOUS EPITHELIAL CELL,UR Few /LPF (None Seen); WBC,URINE 26-50 /HPF (0-5)
[2022-06-10] MEDS: GABAPENTIN 300 MG CAPSULE PO SCH ×2 (16:39→20:43)
[2022-06-10 17:51] LABS: GLUCOMETER DEV NAME(LOC) 2WR.2B; GLUCOSE,POINT OF CARE 97 MG/DL (70-110)
[2022-06-10 19:30] VITALS: BP 159/62
[2022-06-10] MEDS ORDERED: OMEG-136 PO (20:14)
[2022-06-10] MEDS: HydrOXYzine HCL 10 MG TABLET PO SCH (20:43)
[2022-06-10] MEDS: PARoxetine HCL 20 MG TABLET PO SCH (20:44)
[2022-06-10] MEDS: SENNOSIDES 8.6 MG TABLET PO SCH (20:47)
[2022-06-11 05:56] LABS: BASOPHILS % (AUTO) 1.2 % (0.0-2.0); EOSINOPHILS % (AUTO) 4.6 % (1.0-6.0); HEMATOCRIT 36.3 % (36-46); LYMPHOCYTES # (AUTO) 2.4 K/uL (1.0-4.8); LYMPHOCYTES % (AUTO) 37.2 % (22.0-44.0); MEAN CORPUSCULAR HEMOGLOBIN 28.8 pg (26.0-34.0); MEAN CORPUSCULAR HGB CONC 33.2 G/dL (31.0-37.0); MEAN CORPUSCULAR VOLUME 87 fL (80-100); MONOCYTES # (AUTO) 0.6 K/uL (0.1-1.0); MONOCYTES % (AUTO) 8.5 % (2.0-9.0); NEUTROPHILS # (AUTO) 3.2 K/uL (1.8-7.7); NEUTROPHILS % (AUTO) 48.5 % (40.0-70.0); PLATELET COUNT (AUTO) 389 K/uL (150-450); RED BLOOD CELL COUNT(AUTO) 4.17 MIL/uL (4.00-5.20); RED CELL DISTRIBUTION WIDTH 14.4 % (11.5-14.5)
[2022-06-11] MEDS: LEVOTHYROXINE SODIUM 100 MCG TABLET PO SCH (06:03)
[2022-06-11 06:18] LABS: CALCIUM, TOTAL 10.3 mg/dL (8.8-10.5); CREATININE 1.12 mg/dL (0.60-1.30); POTASSIUM 4.3 mmol/L (3.5-5.1); THYROID STIMULATING HORMONE 3.2 uIU/mL (0.36-3.74)
[2022-06-11 06:41] LABS: GLUCOMETER DEV NAME(LOC) 2WR.1C; GLUCOSE,POINT OF CARE 116 MG/DL (70-110)
[2022-06-11 07:53] VITALS: BP 108/73
[2022-06-11] MEDS: MetFORMIN HCL 850 MG TABLET PO SCH ×2 (08:02→16:40)
[2022-06-11] MEDS: OMEPRAZOLE 20 MG CAPSULE PO SCH ×2 (08:03→20:31)
[2022-06-11] MEDS: GABAPENTIN 300 MG CAPSULE PO SCH ×3 (08:03→20:33)
[2022-06-11] MEDS: DOCUSATE SODIUM 250 MG CAPSULE PO SCH ×2 (08:03→20:31)
[2022-06-11] MEDS: FUROSEMIDE 20 MG TABLET PO SCH (08:03)
[2022-06-11] MEDS: LOSARTAN POTASSIUM 25 MG TABLET PO SCH (08:03)
[2022-06-11] MEDS: ETHYL ALCOHOL 62% ANTISEPTIC NASAL SANITIZER 0.6 ML AMPUL NASAL SCH ×2 (08:03→20:31)
[2022-06-11] MEDS: ACETAMINOPHEN 325 MG TABLET PO PRN (09:21)
[2022-06-11] MEDS: CEFDINIR 300 MG CAPSULE PO SCH ×2 (11:17→20:32)
[2022-06-11] MEDS ORDERED: GABA-1181 PO (12:58)
[2022-06-11] MEDS ORDERED: PARO-38 PO (12:58)
[2022-06-11] MEDS ORDERED: MAGN200T5 PO (12:58)
[2022-06-11] MEDS ORDERED: KETO15CR2 TP (12:58)
[2022-06-11] MEDS ORDERED: SOLI5TAB6 PO (12:58)
[2022-06-11 18:07] LABS: GLUCOMETER DEV NAME(LOC) 2WR.1C; GLUCOSE,POINT OF CARE 109 MG/DL (70-110)
[2022-06-11 20:00] VITALS: BP 137/65
[2022-06-11] MEDS: HydrOXYzine HCL 10 MG TABLET PO SCH (20:31)
[2022-06-11] MEDS: SENNOSIDES 8.6 MG TABLET PO SCH (20:32)
[2022-06-11] MEDS: PARoxetine HCL 20 MG TABLET PO SCH (20:32)
[2022-06-12] MEDS: LEVOTHYROXINE SODIUM 100 MCG TABLET PO SCH (06:12)
[2022-06-12 06:52] LABS: GLUCOMETER DEV NAME(LOC) 2WR.2B; GLUCOSE,POINT OF CARE 109 MG/DL (70-110)
[2022-06-12 07:58] VITALS: BP 141/72
[2022-06-12] MEDS: CEFDINIR 300 MG CAPSULE PO SCH ×2 (08:07→20:24)
[2022-06-12] MEDS: MetFORMIN HCL 850 MG TABLET PO SCH ×2 (08:08→16:13)
[2022-06-12] MEDS: LOSARTAN POTASSIUM 25 MG TABLET PO SCH (08:09)
[2022-06-12] MEDS: FUROSEMIDE 20 MG TABLET PO SCH (08:09)
[2022-06-12] MEDS: DOCUSATE SODIUM 250 MG CAPSULE PO SCH ×2 (08:09→20:24)
[2022-06-12] MEDS: ETHYL ALCOHOL 62% ANTISEPTIC NASAL SANITIZER 0.6 ML AMPUL NASAL SCH ×2 (08:09→20:23)
[2022-06-12] MEDS: GABAPENTIN 300 MG CAPSULE PO SCH ×3 (08:09→20:24)
[2022-06-12] MEDS: OMEPRAZOLE 20 MG CAPSULE PO SCH ×2 (08:09→20:25)
[2022-06-12] MEDS: ACETAMINOPHEN 325 MG TABLET PO PRN ×2 (10:18→20:32)
[2022-06-12 19:57] VITALS: BP 144/66
[2022-06-12] MEDS: SENNOSIDES 8.6 MG TABLET PO SCH (20:24)
[2022-06-12] MEDS: HydrOXYzine HCL 10 MG TABLET PO SCH (20:25)
[2022-06-12] MEDS: PARoxetine HCL 20 MG TABLET PO SCH (20:25)
[2022-06-13] MEDS: LEVOTHYROXINE SODIUM 100 MCG TABLET PO SCH (06:43)
[2022-06-13 07:50] VITALS: BP 140/74
[2022-06-13] MEDS: MetFORMIN HCL 850 MG TABLET PO SCH ×2 (08:36→17:49)
[2022-06-13] MEDS: DOCUSATE SODIUM 250 MG CAPSULE PO SCH ×2 (09:24→21:00)
[2022-06-13] MEDS: LOSARTAN POTASSIUM 25 MG TABLET PO SCH (09:24)
[2022-06-13] MEDS: GABAPENTIN 300 MG CAPSULE PO SCH ×3 (09:24→21:40)
[2022-06-13] MEDS: ETHYL ALCOHOL 62% ANTISEPTIC NASAL SANITIZER 0.6 ML AMPUL NASAL SCH ×2 (09:24→21:40)
[2022-06-13] MEDS: FUROSEMIDE 20 MG TABLET PO SCH (09:30)
[2022-06-13] MEDS: CEFDINIR 300 MG CAPSULE PO SCH ×2 (09:30→21:40)
[2022-06-13] MEDS: OMEPRAZOLE 20 MG CAPSULE PO SCH ×2 (09:31→21:40)
[2022-06-13] MEDS: ACETAMINOPHEN 325 MG TABLET PO PRN ×3 (10:51→21:46)
[2022-06-13] MEDS: SENNOSIDES 8.6 MG TABLET PO SCH (21:00)
[2022-06-13] MEDS: HydrOXYzine HCL 10 MG TABLET PO SCH (21:40)
[2022-06-13] MEDS: PARoxetine HCL 20 MG TABLET PO SCH (21:40)
[2022-06-13 21:46] VITALS: BP 140/71
[2022-06-14] MEDS: LEVOTHYROXINE SODIUM 100 MCG TABLET PO SCH (06:41)
[2022-06-14 08:10] VITALS: BP 113/55
[2022-06-14] MEDS: DOCUSATE SODIUM 250 MG CAPSULE PO SCH ×2 (08:17→21:02)
[2022-06-14] MEDS: MetFORMIN HCL 850 MG TABLET PO SCH ×2 (08:17→17:16)
[2022-06-14] MEDS: LOSARTAN POTASSIUM 25 MG TABLET PO SCH (08:17)
[2022-06-14] MEDS: ETHYL ALCOHOL 62% ANTISEPTIC NASAL SANITIZER 0.6 ML AMPUL NASAL SCH ×2 (08:17→21:02)
[2022-06-14] MEDS: OMEPRAZOLE 20 MG CAPSULE PO SCH ×2 (08:18→21:03)
[2022-06-14] MEDS: GABAPENTIN 300 MG CAPSULE PO SCH ×3 (08:18→21:02)
[2022-06-14] MEDS: CEFDINIR 300 MG CAPSULE PO SCH (08:18)
[2022-06-14] MEDS: FUROSEMIDE 20 MG TABLET PO SCH (08:18)
[2022-06-14] MEDS: CIPROFLOXACIN HCL 250 MG TABLET PO SCH ×3 (10:27→21:03)
[2022-06-14] MEDS: ACETAMINOPHEN 325 MG TABLET PO PRN ×2 (14:58→21:05)
[2022-06-14 20:00] VITALS: BP 135/58
[2022-06-14] MEDS: SENNOSIDES 8.6 MG TABLET PO SCH (21:02)
[2022-06-14] MEDS: PARoxetine HCL 20 MG TABLET PO SCH (21:03)
[2022-06-14] MEDS: MELATONIN 3 MG TABLET PO PRN (21:16)
[2022-06-15] MEDS: LEVOTHYROXINE SODIUM 100 MCG TABLET PO SCH (06:29)
[2022-06-15 08:05] VITALS: BP 120/65
[2022-06-15] MEDS: LOSARTAN POTASSIUM 25 MG TABLET PO SCH (08:26)
[2022-06-15] MEDS: ETHYL ALCOHOL 62% ANTISEPTIC NASAL SANITIZER 0.6 ML AMPUL NASAL SCH ×2 (08:26→21:20)
[2022-06-15] MEDS: DOCUSATE SODIUM 250 MG CAPSULE PO SCH ×2 (08:26→21:21)
[2022-06-15] MEDS: OMEPRAZOLE 20 MG CAPSULE PO SCH ×2 (08:26→21:22)
[2022-06-15] MEDS: CIPROFLOXACIN HCL 250 MG TABLET PO SCH ×2 (08:26→21:21)
[2022-06-15] MEDS: MetFORMIN HCL 850 MG TABLET PO SCH ×2 (08:27→17:05)
[2022-06-15] MEDS: GABAPENTIN 300 MG CAPSULE PO SCH ×3 (08:27→21:21)
[2022-06-15] MEDS: FUROSEMIDE 20 MG TABLET PO SCH (08:27)
[2022-06-15 20:10] VITALS: BP 131/70
[2022-06-15] MEDS: PARoxetine HCL 20 MG TABLET PO SCH (21:21)
[2022-06-15] MEDS: MELATONIN 3 MG TABLET PO PRN (21:21)
[2022-06-15] MEDS: SENNOSIDES 8.6 MG TABLET PO SCH (21:21)
[2022-06-15] MEDS: ACETAMINOPHEN 325 MG TABLET PO PRN (21:23)
[2022-06-16] MEDS: LEVOTHYROXINE SODIUM 100 MCG TABLET PO SCH (06:46)
[2022-06-16 08:05] VITALS: BP 139/72
[2022-06-16] MEDS: MetFORMIN HCL 850 MG TABLET PO SCH ×2 (08:11→16:37)
[2022-06-16] MEDS: DOCUSATE SODIUM 250 MG CAPSULE PO SCH ×2 (08:11→21:23)
[2022-06-16] MEDS: FUROSEMIDE 20 MG TABLET PO SCH (08:11)
[2022-06-16] MEDS: OMEPRAZOLE 20 MG CAPSULE PO SCH ×2 (08:11→21:23)
[2022-06-16] MEDS: CIPROFLOXACIN HCL 250 MG TABLET PO SCH ×2 (08:11→21:22)
[2022-06-16] MEDS: ETHYL ALCOHOL 62% ANTISEPTIC NASAL SANITIZER 0.6 ML AMPUL NASAL SCH ×2 (08:11→21:23)
[2022-06-16] MEDS: GABAPENTIN 300 MG CAPSULE PO SCH ×3 (08:11→21:23)
[2022-06-16] MEDS: LOSARTAN POTASSIUM 25 MG TABLET PO SCH (08:12)
[2022-06-16 19:30] VITALS: BP 112/56
[2022-06-16] MEDS: ACETAMINOPHEN 325 MG TABLET PO PRN (21:22)
[2022-06-16] MEDS: PARoxetine HCL 20 MG TABLET PO SCH (21:22)
[2022-06-16] MEDS: SENNOSIDES 8.6 MG TABLET PO SCH (21:22)
[2022-06-16] MEDS: MELATONIN 3 MG TABLET PO PRN (21:23)
[2022-06-17] MEDS: LEVOTHYROXINE SODIUM 100 MCG TABLET PO SCH (06:51)
[2022-06-17 07:55] VITALS: BP 119/65
[2022-06-17] MEDS: CIPROFLOXACIN HCL 250 MG TABLET PO SCH ×2 (08:57→20:34)
[2022-06-17] MEDS: ETHYL ALCOHOL 62% ANTISEPTIC NASAL SANITIZER 0.6 ML AMPUL NASAL SCH ×2 (08:57→20:36)
[2022-06-17] MEDS: MetFORMIN HCL 850 MG TABLET PO SCH ×2 (08:57→16:37)
[2022-06-17] MEDS: LOSARTAN POTASSIUM 25 MG TABLET PO SCH (08:58)
[2022-06-17] MEDS: GABAPENTIN 300 MG CAPSULE PO SCH ×3 (08:58→20:35)
[2022-06-17] MEDS: FUROSEMIDE 20 MG TABLET PO SCH (08:58)
[2022-06-17] MEDS: DOCUSATE SODIUM 250 MG CAPSULE PO SCH ×2 (08:58→20:34)
[2022-06-17] MEDS: OMEPRAZOLE 20 MG CAPSULE PO SCH ×2 (08:58→20:34)
[2022-06-17 20:34] VITALS: BP 124/55
[2022-06-17] MEDS: SENNOSIDES 8.6 MG TABLET PO SCH (20:34)
[2022-06-17] MEDS: ACETAMINOPHEN 325 MG TABLET PO PRN (20:34)
[2022-06-17] MEDS: PARoxetine HCL 20 MG TABLET PO SCH (20:35)
[2022-06-17] MEDS: MELATONIN 3 MG TABLET PO PRN (20:35)
[2022-06-18] MEDS: LEVOTHYROXINE SODIUM 100 MCG TABLET PO SCH (06:34)
[2022-06-18 08:02] VITALS: BP 118/58
[2022-06-18] MEDS: MetFORMIN HCL 850 MG TABLET PO SCH ×2 (08:13→17:48)
[2022-06-18] MEDS: ACETAMINOPHEN 325 MG TABLET PO PRN ×2 (08:13→15:03)
[2022-06-18] MEDS: CIPROFLOXACIN HCL 250 MG TABLET PO SCH ×2 (08:13→21:59)
[2022-06-18] MEDS: DOCUSATE SODIUM 250 MG CAPSULE PO SCH ×2 (08:13→22:00)
[2022-06-18] MEDS: LOSARTAN POTASSIUM 25 MG TABLET PO SCH (08:13)
[2022-06-18] MEDS: OMEPRAZOLE 20 MG CAPSULE PO SCH ×2 (08:13→22:00)
[2022-06-18] MEDS: GABAPENTIN 300 MG CAPSULE PO SCH ×3 (08:13→22:00)
[2022-06-18] MEDS: FUROSEMIDE 20 MG TABLET PO SCH (08:14)
[2022-06-18] MEDS: ETHYL ALCOHOL 62% ANTISEPTIC NASAL SANITIZER 0.6 ML AMPUL NASAL SCH ×2 (10:08→21:59)
[2022-06-18 19:00] VITALS: BP 113/56
[2022-06-18] MEDS: SENNOSIDES 8.6 MG TABLET PO SCH (21:59)
[2022-06-18] MEDS: PARoxetine HCL 20 MG TABLET PO SCH (22:00)
[2022-06-19] MEDS: LEVOTHYROXINE SODIUM 100 MCG TABLET PO SCH (06:47)
[2022-06-19 08:00] VITALS: BP 117/57
[2022-06-19] MEDS: MetFORMIN HCL 850 MG TABLET PO SCH ×2 (08:19→16:27)
[2022-06-19] MEDS: ETHYL ALCOHOL 62% ANTISEPTIC NASAL SANITIZER 0.6 ML AMPUL NASAL SCH ×2 (08:19→20:36)
[2022-06-19] MEDS: LOSARTAN POTASSIUM 25 MG TABLET PO SCH (08:20)
[2022-06-19] MEDS: CIPROFLOXACIN HCL 250 MG TABLET PO SCH (08:20)
[2022-06-19] MEDS: FUROSEMIDE 20 MG TABLET PO SCH (08:20)
[2022-06-19] MEDS: OMEPRAZOLE 20 MG CAPSULE PO SCH ×2 (08:20→20:36)
[2022-06-19] MEDS: DOCUSATE SODIUM 250 MG CAPSULE PO SCH ×2 (08:20→20:37)
[2022-06-19] MEDS: GABAPENTIN 300 MG CAPSULE PO SCH ×3 (08:20→20:36)
[2022-06-19] MEDS: ACETAMINOPHEN 325 MG TABLET PO PRN (18:48)
[2022-06-19 19:50] VITALS: BP 132/59
[2022-06-19] MEDS: PARoxetine HCL 20 MG TABLET PO SCH (20:36)
[2022-06-19] MEDS: SENNOSIDES 8.6 MG TABLET PO SCH (20:37)
[2022-06-20] MEDS ORDERED: DOCU-350 PO ×2 (03:45→09:31)
[2022-06-20] MEDS: LEVOTHYROXINE SODIUM 100 MCG TABLET PO SCH (06:29)
[2022-06-20] MEDS: GABAPENTIN 300 MG CAPSULE PO SCH (08:11)
[2022-06-20] MEDS: DOCUSATE SODIUM 250 MG CAPSULE PO SCH (08:11)
[2022-06-20] MEDS: MetFORMIN HCL 850 MG TABLET PO SCH (08:11)
[2022-06-20] MEDS: FUROSEMIDE 20 MG TABLET PO SCH (08:11)
[2022-06-20] MEDS: OMEPRAZOLE 20 MG CAPSULE PO SCH (08:11)
[2022-06-20] MEDS: ETHYL ALCOHOL 62% ANTISEPTIC NASAL SANITIZER 0.6 ML AMPUL NASAL SCH (08:11)
[2022-06-20] MEDS: LOSARTAN POTASSIUM 25 MG TABLET PO SCH (08:12)
[2022-06-20 08:58] VITALS: BP 137/64
[2022-06-20] MEDS ORDERED: PARO-37 PO (09:31)
[2022-06-20] MEDS ORDERED: LOSA25TA2 PO (09:31)
[2022-06-20] MEDS ORDERED: METF-1185 PO (09:31)
[2022-06-20] MEDS ORDERED: FURO20 PO (09:31)
[2022-06-20] MEDS ORDERED: OMEP20 PO (09:31)
[2022-06-20] MEDS ORDERED: GABA-1181 PO (09:31)
[2022-06-20] MEDS ORDERED: LEVO100 PO (09:31)
== END 2022-06-20 13:50 | disposition home or self-care (01) | DRG 551 ==
LOC: 2WR 19:19
PROVIDERS: ADMIT Physical Medicine & Rehabilitation; ATTEND Physical Medicine & Rehabilitation
DX: M50.03 Cervical disc disorder with myelopathy, cervicothoracic region (principal); G82.50 Quadriplegia, unspecified; E46 Unspecified protein-calorie malnutrition; N39.0 Urinary tract infection, site not specified; E03.9 Hypothyroidism, unspecified; E11.22 Type 2 diabetes mellitus with diabetic chronic kidney disease; M19.90 Unspecified osteoarthritis, unspecified site; I12.9 Hypertensive chronic kidney disease with stage 1 through stage 4 chronic kidney disease, or unspecified chronic kidney disease; M50.11 Cervical disc disorder with radiculopathy, high cervical region; M81.0 Age-related osteoporosis without current pathological fracture; N18.30 Chronic kidney disease, stage 3 unspecified; Z79.899 Other long term (current) drug therapy; Z68.31 Body mass index [BMI] 31.0-31.9, adult
CPT/HCPCS: 80048; 80053; 81001; 82962; 84443; 85025; 87081; 87086; 87186; 92610; 93970; 97110; 97112; 97116; 97140; 97162; 97167; 97530; 97535; 99366; Q9967